=== PATIENT | male | born 1965 | race African-American/Black ===

== ENCOUNTER 2021-11-25 09:48 | Inpatient (IN) | payer OTHER ==
[~2021-11-25] VITALS: Ht 185.4 cm; Wt 78.2 kg
--- NOTE | 2021-11-25 09:48 | NUR ---
Pt brought to room 1a via w/c from car. Pt placed on cont satellite project site monitor, pulse ox and BP. Report given to primary nurse VIVIAN Beltre who is at bedside.
--- NOTE | 2021-11-25 10:00 | NUR ---
CODE STROKE activated by .
--- NOTE | 2021-11-25 10:02 | NUR ---
TELEMED REQUEST filed for code stroke, connect ID [id number].
--- NOTE | 2021-11-25 10:04 | NUR ---
Pt to CT via dilcia with charge preparation technician and RN with ACLS guidelines in place.
[2021-11-25] MEDS ORDERED: IV NORMAL SALINE 250 ML IV ONE (10:09)
[2021-11-25] MEDS ORDERED: IOHEXOL 350 100 ML INFUS..BTL ONE (10:09)
[2021-11-25] MEDS ORDERED: SWABABLE VALVE TRANSFER SET EA MC ONE (10:09)
[2021-11-25 10:24] LABS: ALANINE AMINOTRANSFERASE 30 U/L (16-63); ALKALINE PHOSPHATASE 55 U/L (50-136); ASPARTATE AMINOTRANSFERASE 25 U/L (15-37); BILIRUBIN,DIRECT 0.1 mg/dL (0.0-0.2); BILIRUBIN,TOTAL 0.7 mg/dL (0.2-1.0); CARBON DIOXIDE 24 mmol/L (21-32); CHLORIDE 110 mmol/L (98-107); CREATININE 2.5 mg/dL (0.6-1.3); GLUCOSE 118 mg/dL (74-106); POTASSIUM 4.4 mmol/L (3.5-5.1); TOTAL PROTEIN, SERUM 9.1 g/dL (6.4-8.2); UREA NITROGEN, BLOOD 34 mg/dL (7-18)
[2021-11-25 10:26] LABS: CHOLESTEROL 189 mg/dL (<200); HDL CHOLESTEROL 66 mg/dL (40-60); TRIGLYCERIDES 131 MG/DL (30-150)
[2021-11-25 10:27] LABS: HEMATOCRIT 38.4 % (36.7-47.1); MEAN CORPUSCULAR HEMOGLOBIN 29.5 uug (23.8-33.4); MEAN CORPUSCULAR VOLUME 87.5 fL (73.0-96.2); PLATELET COUNT (AUTO) 450 K/uL (152-348)
--- NOTE | 2021-11-25 10:32 | NUR ---
Pt back from CT to room 1A. Dr. Olivarez and nursing staff at bedside.
[2021-11-25] MEDS ORDERED: LEVO50TA8 PO (10:45)
[2021-11-25] MEDS ORDERED: HYDR-3972 PO (10:45)
[2021-11-25] MEDS ORDERED: ASPI-1420 PO (10:45)
[2021-11-25] MEDS ORDERED: CLOP75TA33 PO (10:45)
[2021-11-25] MEDS ORDERED: ROSU10TA29 PO (10:45)
[2021-11-25] MEDS ORDERED: FURO20TA4 PO (10:45)
[2021-11-25] MEDS ORDERED: METO25TA6 PO (10:45)
[2021-11-25] MEDS ORDERED: METO-356 MT (10:45)
--- NOTE | 2021-11-25 10:48 | NUR ---
Note king in ED - 11/25/21 at 1108 by ABDULKADIR Pt brought to room 1a via w/c from car. Pt placed on cont school lunch monitor, pulse ox and BP. Report given to primary nurse VIVIAN Beltre who is at bedside.
--- NOTE | 2021-11-25 12:25 | NUR ---
Patient is resting comfortably in bed with eyes closed, NAD noted.
--- NOTE | 2021-11-25 12:31 | NUR ---
Angle Patel, admitting MD at the bedside.
--- NOTE | 2021-11-25 14:14 | NUR ---
Pt transfered to [facility] floor w/ ACLS protocal.
--- NOTE | 2021-11-25 14:25 | NUR ---
ADMITTED VIA [facility]. ORIENTED TO SURROUNDINGS. NO C/O DISCOMFORT. STATED JUST VERY TIRED.
[2021-11-25] MEDS ORDERED: ONDANSETRON 4 MG/2 ML VIAL IV PRN (15:00)
[2021-11-25] MEDS ORDERED: REMEDY ESSENTIAL ZINC PASTE 113 GM TP PRN (15:00)
[2021-11-25] MEDS ORDERED: HYDROCODONE/APAP 5-325MG TABLET PO PRN (15:00)
--- NOTE | 2021-11-25 15:00 | NUR ---
DR. AGGARWAL HERE. PATIENT SHOWS NO SIGNS OF RESIDUAL FROM CVA.
[2021-11-25 16:00] VITALS: BP 144/98
[2021-11-25] MEDS ORDERED: FUROSEMIDE 20 MG TABLET PO SCH (17:00)
--- NOTE | 2021-11-25 17:17 | NUR ---
FOUND IN BATHROOM URINATING IN SINK. INSTRUCTED TO CALL FOR ASSISTANCE IN FUTURE. PATIENT VERY UNSTEADT AT THIS TIME. STILL A&O X3. ASSISTED BACK TO BED.
[2021-11-25] MEDS: ACETAMINOPHEN 325 MG TABLET PO PRN (18:08)
[2021-11-25] MEDS ORDERED: CEFTRIAXONE 1 G VIAL IM SCH (18:30)
[2021-11-25] MEDS: CEFTRIAXONE 1 G in IV DEXTROSE 5% 50 ML IV SCH (19:50)
[2021-11-25 20:00] VITALS: BP 109/74
[2021-11-25] MEDS: DOXYCYCLINE HYCLATE 100 MG TABLET PO SCH (20:30)
[2021-11-25] MEDS: ATORVASTATIN 20 MG TABLET PO SCH (20:30)
[2021-11-25 21:09] LABS: *AMPHETAMINE, URINE NEGATIVE (NEGATIVE); *CANNABINOID, URINE NEGATIVE (NEGATIVE); *COCCAINE, URINE NEGATIVE (NEGATIVE); *OPIATE, URINE NEGATIVE (NEGATIVE); *PHENCYCLIDINE SCREEN,URINE NEGATIVE (NEGATIVE)
[2021-11-26 01:30] LABS: BAND % (MANUAL) 2 % (0-10); EOSINOPHILS % (MANUAL) 1 % (0-8); LYMPHOCYTES % (MANUAL) 33 % (20-40); MONOCYTES % (MANUAL) 17 % (2-10); NEUTROPHILS % (MANUAL) 47 % (42-75)
[2021-11-26] MEDS: ACETAMINOPHEN 325 MG TABLET PO PRN ×3 (03:46→20:29)
[2021-11-26 04:12] VITALS: BP 119/76
[2021-11-26] MEDS: LEVOTHYROXINE SODIUM 50 MCG TABLET PO SCH (06:31)
--- NOTE | 2021-11-26 06:44 | NUR ---
Slept throughout the night. Denies SOB or pain. Able to make needs known. Able to move all extremities WNL. Stripping Machine Operator strength equal in all extremities. Pt had episodes of SVT at 130bpm, Shay Arora DIRECTOR OF PARTNERSHIPS notified with orders to place pacemaker magnet over pacemaker. No change noted. IV site intact. Safety maintained. Will endorse to day shift.
[2021-11-26 06:50] LABS: HEMATOCRIT 38.3 % (36.7-47.1); MEAN CORPUSCULAR HEMOGLOBIN 29.6 uug (23.8-33.4); MEAN CORPUSCULAR VOLUME 87.2 fL (73.0-96.2); PLATELET COUNT (AUTO) 422 K/uL (152-348)
[2021-11-26 07:01] LABS: MAGNESIUM 2.1 mg/dL (1.8-2.4); PHOSPHOROUS 3.5 mg/dL (2.5-4.9); POTASSIUM 4.3 mmol/L (3.5-5.1)
[2021-11-26] MEDS: DOXYCYCLINE HYCLATE 100 MG TABLET PO SCH ×2 (08:25→20:29)
[2021-11-26] MEDS: CLOPIDOGREL 75 MG TABLET PO SCH (08:25)
[2021-11-26] MEDS: FUROSEMIDE 20 MG TABLET PO SCH (08:25)
[2021-11-26] MEDS: APIXABAN 5 MG TABLET PO SCH ×2 (08:27→20:33)
[2021-11-26] MEDS: METOPROLOL SUCCINATE XL 50 MG TAB.SR.24H PO SCH (08:31)
[2021-11-26] MEDS ORDERED: METOPROLOL TARTRATE 25 MG TABLET PO SCH (09:00)
[2021-11-26] MEDS ORDERED: METOPROLOL SUCCINATE XL 25 MG TAB.SR.24H PO SCH (09:00)
[2021-11-26] MEDS ORDERED: ASPIRIN EC 81 MG TABLET.DR PO SCH (09:00)
[2021-11-26 11:01] VITALS: BP 111/71
--- NOTE | 2021-11-26 14:43 | NUR ---
patient is resting in bed. NIHSS assessment completed s/p CVA. Patient has no weakness to BLE, mild symmetrical weakness noted to BLE. Speech is clear but delayed. Face is symmetrical, shows poor appetite. Jello provided as substitute. Patient noted with mild temp 99.8. Patient states he wants to lay on floor because it's cooler. Instructed not to lay on the floor and cooling measures provided. Tylenol 650mg PO provided as requested. Patient is Vpacing on telemetry at 86 BMP. Using urinal to void, clear yellow urine noted. All needs attended, call light within reach.
[2021-11-26 15:16] VITALS: BP 108/73
--- NOTE | 2021-11-26 18:40 | NUR ---
Patient is stable, states he is fatigued. Temp is resolved, 98.8. Telemetry is still Vpacing with tachycardia, 113-115 BPM. Patient asymptomatic, no chest pain or SOB.
[2021-11-26 20:08] VITALS: BP 124/74
[2021-11-26] MEDS: CEFTRIAXONE 1 G in IV DEXTROSE 5% 50 ML IV SCH (20:29)
[2021-11-26] MEDS: ATORVASTATIN 20 MG TABLET PO SCH (20:29)
--- NOTE | 2021-11-26 21:00 | NUR ---
Patient noted with fever of 102.7, oral. Cooling measures initiated and Tylenol 650mg PO provided. Patient states his body feels very warm. He is AAO x4, still noted with mild expressive aphasia, with delayed speech. patient able to make needs known. Continued on Neuro checks s/p CVA.
--- NOTE | 2021-11-26 22:10 | NUR ---
During patient rounding, patient was found on the floor with 2 pillows under his head. When asked if he had fallen he denied falling and stated he laid down to sleep on the floor because it was cooler than his bed. Patient assisted back to bed, minimal to no assist needed to stand. patient had removed gown and requested to keep it off. AC turned adjusted and turned to 65 in room and light sheet provided for sleep. Cooling measures continued, temp is still 99.6.
[2021-11-27] VITALS: BP 112/72
--- NOTE | 2021-11-27 01:00 | NUR ---
Patient started on IV fluids NS at 125cc/hr as ordered, New IV started to left FA, 20 gauge. s/p patient pulling IV out IV during sleep. Strict I&O, started and daily weights.
[2021-11-27] MEDS: IV NS 1000 ML 1,000 ML IV SCH ×4 (01:03→23:31)
[2021-11-27 04:00] VITALS: BP 114/73
--- NOTE | 2021-11-27 05:27 | NUR ---
Patient slept well past midnight, fever resolved WNL at that time. Patient telemetry is Vpacing and no longer tachycardic, HR at 86 at this time. Patient Denies any discomfort. Safety measures continued, call light within reach.
[2021-11-27] MEDS: LEVOTHYROXINE SODIUM 50 MCG TABLET PO SCH (06:11)
[2021-11-27 06:43] LABS: HEMATOCRIT 35.7 % (36.7-47.1); MEAN CORPUSCULAR HEMOGLOBIN 29.8 uug (23.8-33.4); MEAN CORPUSCULAR VOLUME 87.2 fL (73.0-96.2); PLATELET COUNT (AUTO) 358 K/uL (152-348)
[2021-11-27 06:49] LABS: NEUTROPHILS % (MANUAL) 0 % (42-75)
[2021-11-27 06:50] LABS: MAGNESIUM 2.1 mg/dL (1.8-2.4); PHOSPHOROUS 3.1 mg/dL (2.5-4.9)
[2021-11-27] MEDS: ACETAMINOPHEN 325 MG TABLET PO PRN ×2 (07:50→14:43)
[2021-11-27] MEDS: METOPROLOL SUCCINATE XL 50 MG TAB.SR.24H PO SCH (08:40)
[2021-11-27] MEDS: CLOPIDOGREL 75 MG TABLET PO SCH (08:40)
[2021-11-27] MEDS: FUROSEMIDE 20 MG TABLET PO SCH (08:40)
[2021-11-27] MEDS: DOXYCYCLINE HYCLATE 100 MG TABLET PO SCH ×2 (08:40→20:11)
[2021-11-27] MEDS: APIXABAN 5 MG TABLET PO SCH ×2 (08:41→20:12)
[2021-11-27 11:20] VITALS: BP 118/70
[2021-11-27] MEDS ORDERED: ACETAMINOPHEN ES 500 MG TABLET PO PRN (14:45)
[2021-11-27 15:27] VITALS: BP 114/69
--- NOTE | 2021-11-27 18:22 | NUR ---
Patient received care well throughout shift with complaints of pain or fevers. No fever noted during shift. Tylenol given Q6H to help prevent temperature spike. IV site patent and intact running 125 cc/hr of normal saline. Bed left in lowest position with call light within reach. Comfort measures provided.
[2021-11-27] MEDS: ATORVASTATIN 20 MG TABLET PO SCH (20:11)
[2021-11-27] MEDS: CEFTRIAXONE 1 G in IV DEXTROSE 5% 50 ML IV SCH (20:11)
[2021-11-27 20:15] VITALS: BP 124/79
[2021-11-28 00:05] VITALS: BP 104/63
--- NOTE | 2021-11-28 05:45 | NUR ---
Pt slept throughout the night. No distress noted. Able to make needs known. IV site intact, running ordered fluids. Tolerated all medications given. Pt on strict I&O protocols. Denies [place] or dizziness. All extremities WNL. Able to ambulate with assistance. No changes in LOC throughout shift.
[2021-11-28] MEDS: IV NS 1000 ML 1,000 ML IV SCH (06:18)
[2021-11-28] MEDS: LEVOTHYROXINE SODIUM 50 MCG TABLET PO SCH (06:18)
[2021-11-28 06:34] LABS: HEMATOCRIT 34.5 % (36.7-47.1); MEAN CORPUSCULAR HEMOGLOBIN 29.8 uug (23.8-33.4); MEAN CORPUSCULAR VOLUME 86.8 fL (73.0-96.2); PLATELET COUNT (AUTO) 332 K/uL (152-348)
[2021-11-28 06:53] LABS: CREATININE 2.7 mg/dL (0.6-1.3); MAGNESIUM 1.9 mg/dL (1.8-2.4); PHOSPHOROUS 3.6 mg/dL (2.5-4.9); POTASSIUM 4.2 mmol/L (3.5-5.1)
--- NOTE | 2021-11-28 08:00 | NUR ---
Pt A/O x 4. Pt denies any c/o pain. Call light is within reach. No weakness, no drift, no asphasia noted. Noted AICD on left chest wall.
[2021-11-28 08:03] LABS: BAND % (MANUAL) 5 % (0-10); EOSINOPHILS % (MANUAL) 15 % (0-8); LYMPHOCYTES % (MANUAL) 25 % (20-40); MONOCYTES % (MANUAL) 10 % (2-10); NEUTROPHILS % (MANUAL) 45 % (42-75)
[2021-11-28] MEDS: DOXYCYCLINE HYCLATE 100 MG TABLET PO SCH (09:53)
[2021-11-28] MEDS: APIXABAN 5 MG TABLET PO SCH (09:53)
[2021-11-28] MEDS: FUROSEMIDE 20 MG TABLET PO SCH (09:53)
[2021-11-28] MEDS: CLOPIDOGREL 75 MG TABLET PO SCH (09:53)
[2021-11-28] MEDS: METOPROLOL SUCCINATE XL 50 MG TAB.SR.24H PO SCH (09:55)
[2021-11-28 11:23] VITALS: BP 100/79
[2021-11-28 15:06] VITALS: BP 117/66
[2021-11-28] MEDS ORDERED: APIX5TAB PO (15:55)
[2021-11-28] MEDS ORDERED: DOXY100T2 PO (15:55)
[2021-11-28] MEDS ORDERED: CEFU500T66 PO (15:55)
--- NOTE | 2021-11-28 17:00 | NUR ---
Discharge instructions given to patient. E prescription sent to preferred pharmacy. Pt verbalized understanding. IV DC. Pt is in no acute distress. PT went home via taxi voucher.
== END 2021-11-28 17:00 | disposition home or self-care (01) | DRG 45 ==
LOC: ER 09:48 → TELE3 13:41
PROVIDERS: ADMIT Nurse Practitioner Acute Care; ATTEND Nurse Practitioner Acute Care
DX: I63.231 Cerebral infarction due to unspecified occlusion or stenosis of right carotid arteries (principal); N17.0 Acute kidney failure with tubular necrosis; I50.43 Acute on chronic combined systolic (congestive) and diastolic (congestive) heart failure; A41.9 Sepsis, unspecified organism; I42.9 Cardiomyopathy, unspecified; I25.10 Atherosclerotic heart disease of native coronary artery without angina pectoris; I25.2 Old myocardial infarction; N18.9 Chronic kidney disease, unspecified; Z95.5 Presence of coronary angioplasty implant and graft; I69.354 Hemiplegia and hemiparesis following cerebral infarction affecting left non-dominant side; Z95.810 Presence of automatic (implantable) cardiac defibrillator; R47.01 Aphasia; I13.0 Hypertensive heart and chronic kidney disease with heart failure and stage 1 through stage 4 chronic kidney disease, or unspecified chronic kidney disease; D75.839 Thrombocytosis, unspecified; R29.703 NIHSS score 3; R50.9 Fever, unspecified; H57.89 Other specified disorders of eye and adnexa
CPT/HCPCS: 36415; 70030-TC; 70450; 70496; 71045; 76770; 83735; 84100; 84484; 85025; 85730; 86850; 86900; 86901; 87040; 87077; 87086; 93005; 93307; 97161; A4663; A9150; G0378; J0696; J7040; Q9967